=== PATIENT | male | born 1965 | race Caucasian/White ===

== ENCOUNTER → 2024-10-02 | Day surgery (SDC) | payer MEDICAID ==
[~2024-10-02] VITALS: Ht 180.3 cm; Wt 83.0 kg
[~2024-10-02] MED LIST: ACETAMINOPHEN 325MG TABLET PO PRN; ASPI-1497 PO; ATOR-2 PO; CARV3.1242 PO; DAPA10TA PO; DULA1.5P SQ; ESCI10TA PO; FENTANYL CITRATE/PF 50MCG/ML 2ML VIAL ONE; HEPARIN 1000 UNITS/ML 10ML ONE; IODIXANOL 320MG/ML 100 ML BOTTLE IV ONE; LIDOCAINE HCL 1% 20ML VIAL ONE; LISI-186 PO; METF-416 PO; MIDAZOLAM HCL 2 MG/2 ML VIAL ONE; MORPHINE SULFATE 2 MG/ML INJ (NOT FOR IM USE) IV PRN; PREG50CA PO; TERB250T88 PO; TICA90TA PO
[2024-10-02 07:35] LABS: CHLORIDE 106 mEq/L (98-107); POTASSIUM 4.3 mEq/L (3.5-5.1); SODIUM 140 mEq/L (136-145)
[2024-10-02 07:36] LABS: CARBON DIOXIDE 27 mEq/L (21-32)
[2024-10-02 07:37] LABS: CALCIUM 9.2 mg/dL (8.7-10.4)
[2024-10-02 07:41] LABS: CREATININE 0.8 mg/dL (0.6-1.3); GLUCOSE 177 mg/dL (70-105)
[2024-10-02 07:42] LABS: UREA NITROGEN BLOOD 12 mg/dL (9-23)
[2024-10-02 07:50] LABS: BASOPHILS % 0.8 % (0.0-2.0); EOSINOPHILS % 3.9 % (0.0-5.0); HEMOGLOBIN. 13.1 g/dL (14.0-18.0); LYMPHOCYTES % 22.1 % (20.0-50.0); MEAN CORPUSCULAR HGB CONC 32.8 g/dL (31.0-37.0); MEAN CORPUSCULAR VOLUME 88.4 fL (80.0-94.0); MEAN PLATELET VOLUME 7.4 fl (7.4-10.4); MONOCYTES % 9.5 % (2.0-8.0); NEUTROPHILS % 63.7 % (40.0-76.0); PLATELET 291 x1000/uL (130-400); RED BLOOD CELL COUNT 4.52 mill/uL (4.7-6.1); RED CELL DISTRIBUTION WIDTH 15.8 % (11.6-14.6); WHITE BLOOD COUNT 5.5 x1000/uL (4.5-11.0)
== END | disposition home or self-care (01) ==
LOC: CCL 06:56
PROVIDERS: ATTEND Internal Medicine Cardiovascular Disease
DX: R94.39 Abnormal result of other cardiovascular function study (principal); R07.9 Chest pain, unspecified; I25.10 Atherosclerotic heart disease of native coronary artery without angina pectoris; E78.5 Hyperlipidemia, unspecified; I11.0 Hypertensive heart disease with heart failure; I50.9 Heart failure, unspecified; E11.9 Type 2 diabetes mellitus without complications; F41.9 Anxiety disorder, unspecified; Z79.02 Long term (current) use of antithrombotics/antiplatelets; Z79.82 Long term (current) use of aspirin; Z79.84 Long term (current) use of oral hypoglycemic drugs; Z79.899 Other long term (current) drug therapy; Z95.5 Presence of coronary angioplasty implant and graft; Z98.890 Other specified postprocedural states
CPT/HCPCS: 93458; 80048; 82962; 85025; 36415; 93005; C1893; C1769 ×2; J3010; Q9967; J1644 ×2; J3490; J2250; C1887; A4606